=== PATIENT | male | born 1995 | race Caucasian/White ===

== ENCOUNTER 2021-01-07 14:16 | Emergency (ER) | payer OTHER, BC ==
[2021-01-07 14:21] VITALS: BP 135/79
[2021-01-07] MEDS ORDERED: NAPR-56 PO (14:26)
== END 2021-01-07 14:31 | disposition home or self-care (01) ==
LOC: ER 14:17
DX: S29.9XXA Unspecified injury of thorax, initial encounter (principal); R07.89 Other chest pain; Z79.899 Other long term (current) drug therapy; V87.7XXA Person injured in collision between other specified motor vehicles (traffic), initial encounter; Y93.89 Activity, other specified; Y92.89 Other specified places as the place of occurrence of the external cause; Y99.8 Other external cause status
CPT/HCPCS: 99282